=== PATIENT | female | born 1975 | race Caucasian/White ===

== ENCOUNTER → 2018-09-22 | Outpatient (CLI) | payer OTHER ==
[~2018-09-22] MED LIST: ETON1VAG7 VG; KET10 PO; LAMOT150PT PO; LEVO1IUD3 IY; NORE1TAB81 PO; [UNRECOGNIZED DRUG - OTHER]
--- NOTE | 2018-09-23 14:37 | RADIOLOGY IMAGING REPORT ---
[place] [facility] [place] NAME: NIGEL SALGADO : [id number] MR: [id number] V: [id number] EXAM DATE: [id number] ORDERING PHYSICIAN: RYAN BRANCH TECHNOLOGIST: Pamella Saravia PROCEDURE: BILATERAL DIGITAL SCREENING MAMMOGRAM WITH CAD ASSISTED INTERPRETATION & 3D TOMOSYNTHESIS REASON FOR STUDY: Screening. FAMILY HISTORY OF BREAST CANCER: None. BREAST PROCEDURES/TREATMENTS: None. COMPARISON: None. VIEWS OBTAINED: 2D & 3D full field CC & MLO and bilateral full field XCC projections. BREAST DENSITY: The breasts are heterogeneously dense which can obscure small masses. MAMMOGRAM FINDINGS: The Right breast appears smaller than the Left. There was no demonstration of malignant appearing mass or calcification in either breast. IMPRESSION: BIRADS 1: Negative. DIAGNOSTIC CATEGORY 1--NEGATIVE. RECOMMENDATIONS: ROUTINE MAMMOGRAM AND CLINICAL EVALUATION. Dictated by: Jess Dawson M.D. on 09/22/2018 at 17:12 Transcribed by: CHAGO on 09/23/2018 at 10:05 Approved by: Jess Dawson M.D. on 09/23/2018 at 14:36 [facility]
== END ==
LOC: MAMO 00:57
PROVIDERS: ATTEND Physician Assistant
DX: Z12.31 Encounter for screening mammogram for malignant neoplasm of breast (principal)
CPT/HCPCS: 77063; 77067